=== PATIENT | male | born 1965 | race Two or more races ===

== ENCOUNTER 2017-05-09 07:11 | Emergency (ER) | payer OTHER ==
[~2017-05-09] VITALS: Ht 180.3 cm; Wt 104.3 kg
[2017-05-09 07:12] VITALS: BP 148/92
--- NOTE | 2017-05-09 07:46 | PHYS DOC ---
Past Medical History Past Medical History: No Pertinent History Past Surgical History: No Surgical History Alcohol Use: Occasionally Drug Use: None Adult General Chief Complaint Chief Complaint: FEVER HPI HPI Patient is a 51 year old medical presents with a fever cough, sore throat and chills, body aches that began 3 days ago and diarrhea that began today. Patient works at [employer]. Review of Systems Review of Systems Constitutional: Reports fever Eyes: Denies change in visual acuity, redness, or eye pain [] HENT: Reports sore throat, denies nasal congestion Respiratory: Reports cough, denies shortness of breath Cardiovascular: No additional information not addressed in HPI [] GI: Reports diarrhea. Denies abdominal pain, nausea, vomiting, bloody stools Musculoskeletal: Denies back pain or joint pain [] Integument: Denies rash or skin lesions [] Neurologic: Denies headache, focal weakness or sensory changes [] All other systems were reviewed and found to be within normal limits, except as documented in this note. Allergies Allergies Allergies Coded Allergies Type Severity Reaction Last Updated Verified Tetanus Vaccines and Toxoid Allergy Intermediate 05/09/17 Yes Physical Exam Physical Exam Constitutional: Well developed, well nourished, no acute distress, non-toxic appearance. [] HENT: Normocephalic, atraumatic, bilateral external ears normal, oropharynx moist, no oral exudates, nose normal. [] Eyes: PERRLA, EOMI, conjunctiva normal, no discharge. [] Neck: Normal range of motion, no tenderness, supple, no stridor. [] Cardiovascular:Heart rate regular rhythm, no murmur [] Lungs & Thorax: Bilateral breath sounds clear to auscultation [] Abdomen: Bowel sounds normal, soft, no tenderness, no masses, no pulsatile masses. [] Skin: Warm, dry, no erythema, no rash. [] Back: No tenderness, no CVA tenderness. [] Extremities: No tenderness, no cyanosis, no clubbing, ROM intact, no edema. [] Neurologic: Alert and oriented X 3, normal motor function, normal sensory function, no focal deficits noted. [] Psychologic: Affect normal, judgement normal, mood normal. [] Current Patient Data Vital Signs Vital Signs Date Time Temp Pulse Resp B/P (MAP) Pulse Ox O2 Delivery O2 Flow Rate FiO2 05/09/17 07:12 98.3 124 22 96 Room Air 98.3 Lab Values Laboratory Tests Test 05/09/17 07:15 Influenza Type A Antigen Negative (NEGATIVE) Influenza Type B Antigen Negative (NEGATIVE) Group A Streptococcus Rapid Negative (NEGATIVE) EKG EKG [] Radiology/Procedures Radiology/Procedures [] Course & Med Decision Making Course & Med Decision Making Pertinent Labs and Imaging studies reviewed. (See chart for details) This is a 51-year-old male patient presenting with a fever cough sore throat and body aches that began 3 days ago and diarrhea since this morning. Negative rapid strep, negative influenza A or B. Chest x-ray interpreted by radiologist as negative for any acute findings. Patient has high risk of hospital-acquired pneumonia, he works at [employer] i will send him with Azithromycin, he was also discharged with dicyclomine. His diarrhea is likely viral and just begun today. He was instructed to push fluids. We had offered him IV fluids in the ED as well as labs. He states is a hard stick and last time he was stuck multiple times and ended up with a PICC line in IR. He preferred not to go through that today. Patient was instructed to follow-up patient was instructed to follow-up with the PCP in 1-3 days. His provided return precautions and discharged in stable condition. Dragon Disclaimer Dragon Disclaimer This electronic medical record was generated, in whole or in part, using a voice recognition dictation system. Departure Departure Impression: Primary Impression: Fever Additional Impressions: Diarrhea Tachycardia Bronchitis Pharyngitis, acute Disposition: 01 HOME, SELF-CARE Condition: STABLE Patient Instructions: Acute Bronchitis, Diarrhea, Fever, Adult, Viral and Bacterial Pharyngitis Additional Instructions: You were seen in the ED with multiple complaints including sore throat, fever cough and diarrhea. Your strep test was negative. Your influenza test was negative. Chest x-ray interpreted by radiologist was also negative. You have a high risk of hospital-acquired pneumonia due to your profession, we put you on azithromycin. We highly recommend you push fluids. Maintain good hand hygiene. We also sent you home with dicyclomine. It will help with abdominal symptoms especially the diarrhea which could be viral. Follow-up with your own doctor in the next 1-3 days. Push fluids. Take Tylenol/ Motrin for pain or fever. Scripts Dicyclomine Hcl (DICYCLOMINE HCL) 20 Mg Tablet 1 TAB PO TID, #30 TAB 1 Refill Prov: DAYRON DONOVAN MARK 05/09/17 Azithromycin (ZITHROMAX) 250 Mg Tablet 1 PKG PO UD, #1 PKG Prov: DAYRON DONOVAN MARK 05/09/17 Promethazine Hcl/Codeine (PROMETHAZINE-CODEINE SYRUP) 118 Ml Syrup 5 ML PO Q4-6HRS, #100 ML Prov: OBEDDAYRON WRIGHT MARK 05/09/17 Problem Qualifiers Primary Impression: Fever Fever type: unspecified Qualified Codes: R50.9 - Fever, unspecified Additional Impressions: Diarrhea Diarrhea type: unspecified type Qualified Codes: R19.7 - Diarrhea, unspecified Pharyngitis, acute Pharyngitis/tonsillitis etiology: unspecified etiology Qualified Codes: J02.9 - Acute pharyngitis, unspecified DAYRON DONOVAN MARK May 09, 2017 07:46
--- NOTE | 2017-05-09 08:11 | RAD ---
Indication: Fever, cough, congestion. Technique: Two-view chest radiograph was obtained. No comparison is available. Findings: The lungs are clear. The cardiopulmonary silhouette is within normal limits. There is no pleural effusion. The bony structures are intact. Impression: No acute thoracic findings.
[2017-05-09 08:20] LABS: OBC FLU VALID
[2017-05-09 08:45] LABS: NEGATIVE OBC STREP NEG; POSITIVE OBC STREP POS
[2017-05-09] MEDS ORDERED: PROM118S2 PO (09:17)
[2017-05-09] MEDS ORDERED: AZIT250T PO (09:17)
[2017-05-09] MEDS ORDERED: DICY20TA3 PO (09:17)
== END 2017-05-09 09:29 | disposition home or self-care (01) ==
LOC: ER 07:11
DX: J40 Bronchitis, not specified as acute or chronic (principal); R19.7 Diarrhea, unspecified; J02.9 Acute pharyngitis, unspecified; R00.0 Tachycardia, unspecified; R50.9 Fever, unspecified; Z88.7 Allergy status to serum and vaccine
CPT/HCPCS: 71020; 87070; 87804; 87880; 99285-25